=== PATIENT | female | born 1950 | race Caucasian/White ===

== ENCOUNTER 2019-06-09 13:49 | Inpatient (IN) | payer OTHER ==
[~2019-06-09] VITALS: Ht 152.4 cm; Wt 77.1 kg
[2019-06-09] VITALS (19 sets, daily range): BP systolic 89–114; BP diastolic 45–71
[~2019-06-09 13:49] MED LIST: ALPRAZOLAM 0.0.25 M1 PO; LOPRESSOR100 MG PO; SIMVASTATIN40 MG PO
[2019-06-09 14:22] LABS: ABSOLUTE NEUTROPHILS 8.1 thou/uL (1.4-8.2); BASOPHILS 0.3 % (0.0-2.0); EOSINOPHILS 0.4 % (0.0-3.0); HEMATOCRIT 25.6 % (37.0-47.0); HEMOGLOBIN 8.5 gm/dL (12.0-15.0); LYMPHOCYTES 12.3 % (24.0-44.0); MCH 29.5 pg (26.0-34.0); MCHC 33.3 g/dL (28.0-37.0); MCV 88.6 fL (80.0-100.0); MONOCYTES 8.8 % (1.0-8.0); PLATELET COUNT 287 thou/uL (150-400); POLYS 78.2 % (36.0-66.0); RBC 2.89 mil/uL (4.20-5.00); RDW 12.4 % (10.5-14.5); WBC 10.3 thou/uL (4.0-11.0)
[2019-06-09 14:30] LABS: ANION GAP 8 mmol/L (7-16); BUN 86 mg/dL (7-18); CALCIUM 9.7 mg/dL (8.5-10.1); CHLORIDE 97 mmol/L (98-107); CO2 27 mmol/L (21-32); CREATININE 1.2 mg/dL (0.6-1.0); GLUCOSE 140 mg/dL (74-106); POTASSIUM 5.3 mmol/L (3.5-5.1); SODIUM 132 mmol/L (136-145)
[2019-06-09 14:40] LABS: ALBUMIN 3.3 g/dL (3.4-5.0); APTT 20.8 Seconds (24.5-32.8); PROTIME 10.4 Seconds (9.3-11.4); SGOT 12 U/L (15-37); SGPT 18 U/L (30-65); TOTAL BILIRUBIN 0.1 mg/dL (<0.1-1.0); TOTAL PROTEIN 6.3 g/dL (6.4-8.2); TROPONIN-I <0.06 ng/mL (<0.06)
--- NOTE | 2019-06-09 17:48 | NUR ---
PT CAME FROM ER AT 1646.PT COMPLAINING OF DISTENTION AND ACID REFLUX. PT ON PROTONIX DRIP. NS STARTED AT 75ML/HR. PT NOT COMPLAINING OF ANY PAIN AT THIS MOMENT.
[2019-06-10] VITALS (17 sets, daily range): BP systolic 82–106; BP diastolic 43–59
[2019-06-10 05:57] LABS: HEMATOCRIT 21.5 % (37.0-47.0); HEMOGLOBIN 7.3 gm/dL (12.0-15.0); MCH 30.1 pg (26.0-34.0); MCHC 33.9 g/dL (28.0-37.0); RBC 2.42 mil/uL (4.20-5.00); RDW 12.3 % (10.5-14.5); WBC 7.5 thou/uL (4.0-11.0)
[2019-06-10 06:09] LABS: CALCIUM 8.5 mg/dL (8.5-10.1); POTASSIUM 4.7 mmol/L (3.5-5.1)
--- NOTE | 2019-06-10 08:41 | EKG ---
[address] [place] [address] ELECTROCARDIOGRAM REPORT Name: JANICE MÉNDEZ Room #: 241-P ADM IN M.R.#: [id number] Admission: 06/09/19 Attend Phys: Galo Lara MD Discharge: Date of : 48 Report #: [id number] THIS REPORT FOR: //name// [facility] ED Test Date: 2019-06-09 Test Time: 13:49:50 Pat Name: JANICE MÉNDEZ Department: Room: 241 Gender: F Sexual Assault Counselor: EMIGDIO : 1950 Requested By: Kae Miller Order Number: [id number] MD: Randolph Bone Measurements Intervals [place] Rate: 78 P: -9 MA: 106 QRS: 50 QRSD: 99 T: 49 QT: 372 QTc: 424 Interpretive Statements Sinus rhythm Short MA interval Compared to ECG 04/28/2013 09:44:13 No significant change was found Electronically Signed On 06-10-2019 8:41:09 CDT by Randolph Bone [email or web address] <ELECTRONICALLY SIGNED> By: Randolph Bone MD, [facility] 06/10/19 0841 1349 134 Randolph Bone MD, FACC /EPI
[2019-06-10] MEDS ORDERED: PROTONIX40 M1 PO (10:46)
[2019-06-10 13:49] LABS: URINE BILIRUBIN NEGATIVE (Negative); URINE BLOOD NEGATIVE (Negative); URINE CLARITY CLEAR; URINE COLOR YELLOW; URINE GLUCOSE-RANDOM* NEGATIVE (Negative); URINE KETONES NEGATIVE (Negative); URINE LEUKOCYTES NEGATIVE (Negative); URINE NITRITE NEGATIVE (Negative); URINE PROTEIN (DIPSTICK) NEGATIVE (Negative); URINE SPECIFIC GRAVITY <= 1.005 (1.005-1.035); URINE UROBILINOGEN 0.2 E.U./dl (0.2-1.0)
--- NOTE | 2019-06-10 17:38 | NUR ---
PT TRANSFERED SAFELY TO THE FLOOR ROOM 444 PT REPORT GIVEN TO DALTON GIBSON. PT BELONGINGS TAKEN WITH THE PT.
[2019-06-10] MEDS ORDERED: LISINOPRIL40 MG PO (18:08)
[2019-06-10] MEDS ORDERED: METOPROLOL SUCC50 MG PO (18:09)
[2019-06-10] MEDS ORDERED: ALENDRONATE SOD70 MG PO (18:10)
--- NOTE | 2019-06-10 20:24 | NUR ---
Transferred from ICU to the floor at 1730. Transferred to bed safely. A+Ox4. Falls risk- falls bundle in place. On room air. With SL at R AC and L AC- intact. Vital signs stable. With relatives at bedside. On regular diet- tolerated well, no nausea, no vomiting and no abdominal pain noted. To watch out for bloody stool- none since admission as reported by ICU staff. Pt keen to go home tomorrow. No complaints of pain. Informed pt to inform staff once she has a bowel movement or any bleeding episodes. To continue monitoring. No episodes of lightheadedness and dizziness noted. Upon checking pt's notes, NO MEDICATION REC done at ICU, medication rec done and sent to doctor for review- a/w orders re: meds to continue or to hold- table games shift manager nurse informed.
[2019-06-11 05:51] LABS: WBC 5.4 thou/uL (4.0-11.0)
[2019-06-11 05:54] LABS: MCH 30.2 pg (26.0-34.0); MCHC 33.8 g/dL (28.0-37.0); MCV 89.3 fL (80.0-100.0); RBC 2.2 mil/uL (4.20-5.00); RDW 12.4 % (10.5-14.5)
[2019-06-11 05:56] LABS: HEMATOCRIT 19.6 % (37.0-47.0); HEMOGLOBIN 6.6 gm/dL (12.0-15.0)
--- NOTE | 2019-06-11 08:11 | NUR ---
ASSUMED CARE OF PT @1900. PT A&OX4. PT AMBULATES WITH STAEDY GAIT BUT AGREES TO CALL ON STAFF FOR STANDBY ASSIST DUE TO HX OF LIGHTHEADEDNESS AND DIZZINESS. NO BM OVERNIGHT. FALL PREC IN PLACE. CALL LIGHT WITHIN REACH. NO S/S OF DISTRESS. WILL CONT TO MONITOR
[2019-06-11 09:00] VITALS: BP 111/60
[2019-06-11] MEDS ORDERED: PANTOPRAZOLE SO40 M1 PO (09:30)
[2019-06-11 09:52] VITALS: BP 114/54; BP 138/68
--- NOTE | 2019-06-11 10:15 | NUR ---
Received awake on bed. Due medications given as prescribed. A+Ox4. On room air. With SL at R AC and L AC- intact. Falls risk- falls bundle in place. Vital sings stable. configuration specialist nurse reported that there was a drop in Hb from this AM's blood draw- pt due for blood transfusion, ordered and requested from blood bank, a/w for their call back re: availability of blood. With at bedside. No episode of active bleeding noted. Blood bank called back, with available 1 unit of leukoreduced red cells. Pre-blood transfusion VS done, consent signed. Blood transfusion protocol observed, senior nurse double checked blood. Pt seen by Dr Melton- to transfuse 1 unit for 3hrs, repeat H&H 15 mins post transfusion, if Hb is WNL, pt can be discharged. Blood transfusion initiated, no reactions noted within 15mins. Blood bank called re: availability of another unit- verified with Dr Melton re: number of units to infuse- to give 1 unit to pt. Blood bank informed, will keep blood available just incase pt needs another unit post H&H.
[2019-06-11 13:16] VITALS: BP 138/68
[2019-06-11 13:52] LABS: HEMATOCRIT 28.2 % (37.0-47.0); MCH 30.1 pg (26.0-34.0); MCHC 33.6 g/dL (28.0-37.0); MCV 89.6 fL (80.0-100.0); RBC 3.15 mil/uL (4.20-5.00); RDW 12.9 % (10.5-14.5)
[2019-06-11 13:54] LABS: HEMOGLOBIN 9.5 gm/dL (12.0-15.0)
--- NOTE | 2019-06-11 15:07 | PATH ---
[facility] [address] [place] [address] PATHOLOGY RPT PROCEDURE Name: ARIADNE MÉNDEZ Room #: 444-P ADM IN M.R.#: [id number] Admission: 06/09/19 Date of : 48 Discharge: Report #: [id number] Path Case #: [id number] [facility] Accession Number: [id number] . 01 Material submitted: . stomach - BIOPSY GASTRIC ULCER R/O H. PYLORI . 01 Clinical history: . Pre-OP DX: Anemia, melena Post-OP DX: Gastric ulcers . 02 Diagnosis: Gastric mucosa, gastric ulcer R/O H. pylori, endoscopic biopsy: - Mild reactive gastropathy. - Negative for intestinal metaplasia or atrophy. - Negative for Helicobacter pylori (properly controlled immunohistochemical stain performed). (IUV:blanca; 06/11/2019) QMS 06/11/2019 1314 Local . 02 Electronically signed: . Rosemary Nevarez MD, Pathologist NPI- [id number] . 01 Gross description: . Received in formalin labeled "Ariadne Méndez, BX gastric ulcer, rule out H. pylori," are 3 segments of pate soft tissue measuring 1.2 x 0.6 x 0.2 cm in aggregate dimensions and ranging from 0.3 to 0.7 cm in maximum dimension. The specimen is submitted entirely in cassette A1. (TSD; 06/10/2019) TOB/TOB 06/10/2019 1924 Local . 02 Pathologist provided ICD-10: K31.9 . 02 CPT . 399074, U39983 Specimen Comment: A courtesy copy of this report has been sent to Specimen Comment: [phone], , . Specimen Comment: Report sent to ,DR FRANKS / DR NOLASCO Performed at: [address], [place] [id number] MD Baljeet Do MD Phone: [phone] Performed at: [address] [id number] [address] [address] PATHOLOGY RPT PROCEDURE Name: ARIADNE MÉNDEZ Room #: 444-P ADM IN M.R.#: [id number] Admission: 06/09/19 Date of : 48 Discharge: Report #: [id number] Path Case #: [id number] MD Rosemary Nevarez MD Phone: [phone]
[2019-06-11 15:54] VITALS: BP 138/68
[2019-08-02] MEDS ORDERED: HYDROCHLOROTH12.5 M2 PO (11:44)
[2019-08-02] MEDS ORDERED: ASPIR-LOW81 MG PO (11:46)
== END 2019-06-11 16:54 | disposition home or self-care (01) | DRG 377 ==
LOC: ER 13:49 → EROBS 14:48 → ICU 14:48 → 4S 06-10 17:21 → ENTRNSPT 06-11 16:23 → 4S 06-11 16:54
PROVIDERS: Hospitalist; Internal Medicine; Physician Assistant; ADMIT Hospitalist
PROC: 0DB68ZX Excision of Stomach, Via Natural or Artificial Opening Endoscopic, Diagnostic (ICD-10-PCS; principal; 2019-06-10)
PROC: 30233N1 Transfusion of Nonautologous Red Blood Cells into Peripheral Vein, Percutaneous Approach (ICD-10-PCS; 2019-06-11)
DX: K25.4 Chronic or unspecified gastric ulcer with hemorrhage (principal); E43 Unspecified severe protein-calorie malnutrition; D62 Acute posthemorrhagic anemia; I10 Essential (primary) hypertension; E78.5 Hyperlipidemia, unspecified; Z79.899 Other long term (current) drug therapy; Z79.1 Long term (current) use of non-steroidal anti-inflammatories (NSAID); Z87.891 Personal history of nicotine dependence; Z90.49 Acquired absence of other specified parts of digestive tract; Z90.710 Acquired absence of both cervix and uterus
CPT/HCPCS: 10100; 10195; 10203; 62110; 62900

== ENCOUNTER → 2019-08-05 | Outpatient (CLI) | payer OTHER ==
[~2019-08-05] VITALS: Ht 172.7 cm; Wt 77.1 kg
[~2019-08-05] MED LIST changes: +ALENDRONATE SOD70 MG PO; +ASPIR-LOW81 MG PO; +HYDROCHLOROTH12.5 M2 PO; +LISINOPRIL40 MG PO; +METOPROLOL SUCC50 MG PO; +PANTOPRAZOLE SO40 M1 PO; +PROTONIX40 M1 PO
== END | disposition home or self-care (01) ==
LOC: GI 07-19 11:48
DX: K25.9 Gastric ulcer, unspecified as acute or chronic, without hemorrhage or perforation (principal); I10 Essential (primary) hypertension; E78.00 Pure hypercholesterolemia, unspecified; K21.9 Gastro-esophageal reflux disease without esophagitis; F32.9 Major depressive disorder, single episode, unspecified; F41.9 Anxiety disorder, unspecified; Z86.2 Personal history of diseases of the blood and blood-forming organs and certain disorders involving the immune mechanism; Z90.49 Acquired absence of other specified parts of digestive tract; Z90.710 Acquired absence of both cervix and uterus; Z87.891 Personal history of nicotine dependence
CPT/HCPCS: 62110; 62900

== ENCOUNTER 2019-09-19 15:07 | Inpatient (IN) | payer OTHER ==
[~2019-09-19] VITALS: Ht 172.7 cm; Wt 77.1 kg
[2019-09-19 15:10] VITALS: BP 125/81
[2019-09-19 16:01] LABS: ABSOLUTE NEUTROPHILS 7.7 thou/uL (1.4-8.2); BASOPHILS 0.9 % (0.0-2.0); EOSINOPHILS 0.6 % (0.0-3.0); HEMATOCRIT 25.4 % (37.0-47.0); HEMOGLOBIN 8.4 gm/dL (12.0-15.0); LYMPHOCYTES 13.3 % (24.0-44.0); MCH 28.5 pg (26.0-34.0); MCHC 33.1 g/dL (28.0-37.0); MCV 86.1 fL (80.0-100.0); MONOCYTES 6.2 % (1.0-8.0); PLATELET COUNT 253 thou/uL (150-400); RBC 2.95 mil/uL (4.20-5.00); RDW 14.1 % (10.5-14.5); WBC 9.7 thou/uL (4.0-11.0)
[2019-09-19 16:06] LABS: CALCIUM 10.1 mg/dL (8.5-10.1); POTASSIUM 4.4 mmol/L (3.5-5.1)
[2019-09-19 16:12] LABS: ALBUMIN 3.5 g/dL (3.4-5.0); TOTAL BILIRUBIN 0.2 mg/dL (<0.1-1.0); TOTAL PROTEIN 6.6 g/dL (6.4-8.2)
[2019-09-19 17:03] LABS: PROTIME 10.5 Seconds (9.3-11.4)
[2019-09-19 17:05] LABS: APTT 21.2 Seconds (24.5-32.8)
[2019-09-19 17:37] VITALS: BP 106/61
[2019-09-19 17:54] LABS: HEMATOCRIT 22.4 % (37.0-47.0); HEMOGLOBIN 7.5 gm/dL (12.0-15.0)
[2019-09-19] MEDS ORDERED: VITAMIN B-121000 MC2 PO (18:13)
[2019-09-19 18:20] VITALS: BP 107/69
[2019-09-19 20:15] VITALS: BP 101/49
[2019-09-20] VITALS (8 sets, daily range): BP systolic 97–131; BP diastolic 41–63
[2019-09-20 05:25] LABS: HEMOGLOBIN 6.3 gm/dL (12.0-15.0)
[2019-09-20 05:26] LABS: HEMATOCRIT 18.8 % (37.0-47.0)
[2019-09-20 11:24] LABS: HEMATOCRIT 25.6 % (37.0-47.0)
[2019-09-20 11:25] LABS: HEMOGLOBIN 8.5 gm/dL (12.0-15.0)
[2019-09-21 04:00] VITALS: BP 119/64
[2019-09-21 04:09] LABS: HEMATOCRIT 21.2 % (37.0-47.0); HEMOGLOBIN 7.2 gm/dL (12.0-15.0); MCH 29.5 pg (26.0-34.0); MCHC 33.8 g/dL (28.0-37.0); MCV 87.4 fL (80.0-100.0); RBC 2.43 mil/uL (4.20-5.00); RDW 14.2 % (10.5-14.5); WBC 4.7 thou/uL (4.0-11.0)
[2019-09-21 07:20] VITALS: BP 118/60
--- NOTE | 2019-09-21 11:04 | P ---
[facility] [place] [address] [place] [address] PROCEDURE REPORT Name: JANICE MÉNDEZ Room #: 201-P [facility] IN M.R.#: [id number] Admission: 09/19/19 Attend Phys: Mariia Melton Discharge: Date of : 48 Report #: [id number] THIS REPORT FOR: //name// CC: Mariia Gupta UPPER ENDOSCOPY REPORT BRIEF HISTORY: The patient is a 69-year-old woman with recurrent GI bleeding. She was found to have ulcer disease in last 05/2019 with 4 antral ulcers. Followup endoscopy in mid 07/2019 revealed healing of the ulcers. She presented with melanotic stools, drop in hemoglobin. PREOPERATIVE DIAGNOSIS: History of upper gastrointestinal bleed with previous history of ulcer disease. POSTOPERATIVE DIAGNOSES: 1. Benign appearing antral ulcer. 2. Small hiatus hernia. 3. Diffuse gastritis. MEDICATIONS: Deep sedation with propofol per anesthesia. SPECIMENS: None. ESTIMATED BLOOD LOSS: None. PROCEDURE: EGD with hemostasis. FINDINGS: Prior to propofol sedation, procedure of upper endoscopy discussed with the patient as well as potential risks and its complications. She indicates she understands and desires that we proceed. DESCRIPTION OF PROCEDURE: With the patient in left lateral decubitus position, the Olympus video endoscope was inserted in the cervical esophagus under direct vision without difficulty. Examination of this organ through its entire length revealed normal esophageal mucosa down the squamocolumnar junction. Squamocolumnar junction was inspected and noted to be unremarkable. Small hiatus hernia was seen. Scope was advanced in the stomach, which was examined on end view as well as retroflexed views. There was noted to be patchy erythema noted. Upon retroflexion, no mass or lesions were seen. There was no blood in the stomach. Examination of the antrum of the stomach revealed a 6-8 mm shallow ulcer in the antrum of the stomach. It had a smooth and benign appearance. In the center of white exudate, there was a dark red spot and it was flat. Pylorus, duodenal bulb, and postbulbar duodenal sweep were inspected and noted to be unremarkable. Due to the fact she has had recurrent GI bleeding, it was felt best to treat the ulcer. The standard scope was switched for the [facility] [address] [place] [address] PROCEDURE REPORT Name: JANICE MÉNDEZ Room #: 201-P [facility] IN M.R.#: [id number] Admission: 09/19/19 Attend Phys: Mariia Melton Discharge: Date of : 48 Report #: [id number] therapeutic scope and with use of a 10-[place] BICAP probe, the central black spot was completely obliterated. There was no bleeding. The patient tolerated the procedure well. DISPOSITION: The patient with recurrent GI bleeding. It is noted that previous biopsies were negative for H. pylori. She does take a baby aspirin daily for general health principles. In the past 6 weeks, it was noticed that she has been using nonsteroidal. We will obtain a gastrin level. Continue to monitor for bleeding. She will definitely need a repeat EGD to ensure healing of the ulcer about 8 weeks. She is to avoid use of all nonsteroidals. <ELECTRONICALLY SIGNED> By: Carlitos Fox MD 09/21/19 1104 1259 1621 Carlitos Fox MD /nt
[2019-09-21 11:34] VITALS: BP 138/63
[2019-09-21 14:22] VITALS: BP 124/66
[2019-09-21 19:15] VITALS: BP 120/53
[2019-09-22 03:25] VITALS: BP 122/56
[2019-09-22 04:34] LABS: HEMATOCRIT 21.1 % (37.0-47.0); MCH 29.1 pg (26.0-34.0); MCHC 33.3 g/dL (28.0-37.0); MCV 87.2 fL (80.0-100.0); RBC 2.42 mil/uL (4.20-5.00); RDW 14.2 % (10.5-14.5); WBC 4.5 thou/uL (4.0-11.0)
[2019-09-22 04:49] LABS: CALCIUM 8.8 mg/dL (8.5-10.1); CREATININE 0.8 mg/dL (0.6-1.0); POTASSIUM 3.9 mmol/L (3.5-5.1)
[2019-09-22 08:22] VITALS: BP 125/71
[2019-09-22 11:28] LABS: HEMOGLOBIN 7.5 gm/dL (12.0-15.0)
[2019-09-22 11:29] LABS: HEMATOCRIT 22.6 % (37.0-47.0)
[2019-09-22] MEDS ORDERED: PROTONIX40 M1 PO (12:56)
[2019-09-22] MEDS ORDERED: CARAFATE 1 GM TA1 G1 PO (12:56)
[2019-09-22 13:05] VITALS: BP 125/71
[2019-09-22 13:28] VITALS: BP 125/71
== END 2019-09-22 13:31 | disposition home or self-care (01) | DRG 378 ==
LOC: ER 15:07 → EROBS 17:11 → 2N 17:11 → 4S 09-21 13:51
PROVIDERS: Emergency Medicine; Hospitalist; Internal Medicine Gastroenterology; Specialist; ADMIT Hospitalist
PROC: 0W3P8ZZ Control Bleeding in Gastrointestinal Tract, Via Natural or Artificial Opening Endoscopic (ICD-10-PCS; 2019-09-19)
PROC: 30233N1 Transfusion of Nonautologous Red Blood Cells into Peripheral Vein, Percutaneous Approach (ICD-10-PCS; principal; 2019-09-20)
DX: K25.4 Chronic or unspecified gastric ulcer with hemorrhage (principal); D62 Acute posthemorrhagic anemia; K21.9 Gastro-esophageal reflux disease without esophagitis; I10 Essential (primary) hypertension; E78.5 Hyperlipidemia, unspecified; F41.9 Anxiety disorder, unspecified; F17.210 Nicotine dependence, cigarettes, uncomplicated; R53.1 Weakness; K44.9 Diaphragmatic hernia without obstruction or gangrene; K29.71 Gastritis, unspecified, with bleeding; M81.0 Age-related osteoporosis without current pathological fracture; R53.81 Other malaise; Z87.11 Personal history of peptic ulcer disease; Z90.89 Acquired absence of other organs; Z90.710 Acquired absence of both cervix and uterus; Z91.81 History of falling; Z79.82 Long term (current) use of aspirin; Z79.899 Other long term (current) drug therapy
CPT/HCPCS: 10081; 10102; 62110; 62900; 70005

== ENCOUNTER → 2019-11-04 | Outpatient (CLI) | payer OTHER ==
[~2019-11-04] VITALS: Ht 172.7 cm; Wt 77.1 kg
[~2019-11-04] MED LIST changes: +CARAFATE 1 GM TA1 G1 PO; +OMEPRAZOLE40 MG PO; +VITAMIN B-121000 MC2 PO
--- NOTE | ~2019-11-04 | HPC ---
[facility] [place] [address] [place] [address] PAIN MANAGEMENT CONSULTATION Name: JANICE MÉNDEZ Room #: REG [facility].#: [id number] Admission: 11/04/19 Attend Phys: John Maher MD Discharge: Date of : 48 Report #: [id number] THIS REPORT FOR: cc: Elijah Gupta MD, Steven A. MD Morgan, Richard L. MD ~ THIS REPORT FOR: //name// CC: John Gupta DATE OF SERVICE: 11/04/2019 CHIEF COMPLAINT: Low back pain that radiates through the lateral thigh to the ankle. HISTORY OF PRESENT ILLNESS: The patient is a yessi 69-year-old who is here today at the request of Dr. Gupta for lumbar radicular symptoms. An MRI was performed on 08/29/2019 which confirmed a grade 2 spondylolisthesis at L5-S1. This correlates with some of her symptoms. I do not have the films, but have been able to review the report. She is having her first real episode of back pain. This has been going on for about the last couple of years and is progressively worsening. She averages her daily pain at 8/10 when standing. Standing is her worst position. When she is walking, she is a bit better and she is able to sit comfortably and lay down. She describes it as shooting, burning sensation. MEDICATIONS: Metoprolol 50 mg daily, alprazolam 0.25 mg as needed in perhaps once a week, vitamin B12 1000 mg daily, simvastatin 40 mg daily, lisinopril 40 mg daily, omeprazole 40 mg b.i.d. ALLERGIES: None. She is quite sensitive to nonsteroidal anti-inflammatory drugs and has a history of gastrointestinal bleeding, which is felt to be secondary to their use. She avoids them cautiously. PAST MEDICAL HISTORY: Positive for hypertension and chronic gastritis. The history of ulcers is also noted. PAST TRAUMA HISTORY: Positive for a fractured collarbone approximately 2 years ago when she fell that is around the time that her back pain began. She did not have severe back pain at that time and this spondylolisthesis is felt to be chronic, not acute, this is subacute. PAST SURGICAL HISTORY: Appendectomy in 1968, hysterectomy in [address]. 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 She does not work regularly. She is an ex-smoker, quitting 2 years ago when she fractured her clavicle. She drinks a couple glasses of wine socially almost every evening with her . Impact pain score is 15, this is a very low score out of 70. She manages her pain well. REVIEW OF SYSTEMS: Significant for hearing loss, history of rectal bleeding as described previously and peptic ulcers. She has nocturia and some insomnia. PHYSICAL EXAMINATION: GENERAL: This is a yessi 69-year-old pleasant, alert and oriented, without signs of anxiety, depression or overmedication. She moves independently and easily from sitting to standing position, her gait is nonantalgic. VITAL SIGNS: Blood pressure is 112/62, heart rate 63, respirations 16, O2 sat 98. HEENT: Within normal limits. NECK: Supple. CHEST: Clear. CARDIAC: Rhythm was regular. I could not appreciate a murmur. MUSCULOSKELETAL: Examination of the spine reveals mild tenderness across the lumbosacral segment. There is a palpable step-off consistent with her spondylolisthesis, grade 2. Straight leg raising is only mildly positive in the sitting and supine position, reproducing L5 symptoms. Sensation is normal. Strength is normal. Deep tendon reflexes are 2+ knees, 1+ ankles and symmetrical. IMPRESSION: 1. Grade 2 spondylolisthesis, L5-S1 causing lumbar radiculopathy, bilateral. 2. Severe degenerative disk disease. 3. Some facet arthropathy as well. PROCEDURE RECOMMENDATIONS PROCEDURE: Epidural steroid injection L4-L5 above the level of the spondylolisthesis under fluoroscopic guidance. DESCRIPTION OF PROCEDURE: She was taken to fluoroscopic suite, placed prone, skin prepped with ChloraPrep. Skin anesthetized over the L4-L5 interspace. A 20-gauge Tuohy epidural needle advanced into the inferior epidural space using loss of resistance technique. There was no blood or CSF aspirated. A 1 mL of Omnipaque was injected with an excellent epidurogram. This was then followed by 3 mL of 0.5% lidocaine mixed with 80 mg triamcinolone. She tolerated the [facility] [address] [place] [address] PAIN MANAGEMENT CONSULTATION Name: JANICE MÉNDEZ Room #: REG [facility] Arriaga#: [id number] Admission: 11/04/19 Attend Phys: John Maher MD Discharge: Date of : 48 Report #: [id number] procedure well and was observed for 45 minutes and discharged. Followup visit planned in 1 month or 2. A series of injections is not necessarily recommended, but further injections for symptom management in the future may be of benefit for her. By: 1023 2046 John Maher MD /nt
[2019-11-04 09:10] VITALS: BP 112/62
--- NOTE | 2019-11-04 09:48 | NUR ---
Pain Clinic Assessment: 1. History of Osteoarthritis: DDD BACK History of Rheumatoid Arthritis: * N/A 2. Height: 5 ft. 8 in. 172.7 cm. Weight: 170.0 lb. oz. 77.112 kg. Patient's BMI: 25.9 3. Vital Signs: BP: 112/62 Pulse: 63 Resp: 16 Temp: 02 Sat: 98 ECG Mon: 4. Pain Intensity: 2 TODAY, 5. Fall Risk: Dizziness: N Needs help standing or walking: N Fallen in the last 3 months: N Fall risk comments: 6. Patient on Blood Thinner: None 7. History of Hypertension: Y 8. Opioid Therapy greater than 6 weeks: N Opiate Contract Signed: 9. Risk Assessment Tool Provided: 1-LOW RISK 10. Functional Assessment Tool: 11. Recreational Drug Use: Never Drug Type: Tobacco Use: Former Smoker Tobacco Type: Cigarettes Amount or Packs/day: 4-5 CIGS How Many Years: 30 Alcohol Use: Unknown Frequency: Daily Quant: 2 GLASSES WINE DAY
== END | disposition home or self-care (01) ==
LOC: PAIN 06:53
DX: M51.16 Intervertebral disc disorders with radiculopathy, lumbar region (principal); M47.26 Other spondylosis with radiculopathy, lumbar region; M43.17 Spondylolisthesis, lumbosacral region; I10 Essential (primary) hypertension; Z98.890 Other specified postprocedural states; Z79.899 Other long term (current) drug therapy; Z87.19 Personal history of other diseases of the digestive system; Z88.8 Allergy status to other drugs, medicaments and biological substances

== ENCOUNTER → 2019-11-18 | Outpatient (CLI) | payer OTHER ==
[~2019-11-18] VITALS: Ht 172.7 cm; Wt 76.7 kg
== END | disposition home or self-care (01) ==
LOC: GI 09:23
DX: K25.9 Gastric ulcer, unspecified as acute or chronic, without hemorrhage or perforation (principal); K21.9 Gastro-esophageal reflux disease without esophagitis; I10 Essential (primary) hypertension; E78.00 Pure hypercholesterolemia, unspecified; F41.9 Anxiety disorder, unspecified; Z86.2 Personal history of diseases of the blood and blood-forming organs and certain disorders involving the immune mechanism; Z90.710 Acquired absence of both cervix and uterus; Z90.49 Acquired absence of other specified parts of digestive tract; Z87.891 Personal history of nicotine dependence; Z98.890 Other specified postprocedural states; Z79.899 Other long term (current) drug therapy
CPT/HCPCS: 62110; 62900

== ENCOUNTER → 2020-02-24 | Outpatient (CLI) | payer OTHER ==
[~2020-02-24] VITALS: Ht 172.7 cm; Wt 73.1 kg
[2020-02-24 09:12] VITALS: BP 122/74
--- NOTE | 2020-02-24 09:19 | NUR ---
Pain Clinic Assessment: 1. History of Osteoarthritis: DDD BACK History of Rheumatoid Arthritis: * N/A 2. Height: 5 ft. 8 in. 172.7 cm. Weight: 161.2 lb. oz. 73.120 kg. Patient's BMI: 24.5 3. Vital Signs: BP: 122/74 Pulse: 60 Resp: 16 Temp: 02 Sat: 100 ECG Mon: 4. Pain Intensity: 2 TODAY, 5. Fall Risk: Dizziness: N Needs help standing or walking: N Fallen in the last 3 months: N Fall risk comments: 6. Patient on Blood Thinner: None 7. History of Hypertension: Y 8. Opioid Therapy greater than 6 weeks: N Opiate Contract Signed: 9. Risk Assessment Tool Provided: 1-LOW RISK 10. Functional Assessment Tool: 11. Recreational Drug Use: Never Drug Type: Tobacco Use: Former Smoker Tobacco Type: Cigarettes Amount or Packs/day: How Many Years: 30 Alcohol Use: Yes Frequency: Daily Quant: 1 GLASS WINE
--- NOTE | 2020-03-05 12:16 | HPC ---
[facility] [address] [place] [address] PAIN MANAGEMENT CONSULTATION Name: JANICE MÉNDEZ [id number] Admission: 02/24/20 Attend Phys: John Maher MD Discharge: Date of : 48 Report #: [id number] THIS REPORT FOR: cc: Elijah Gupta MD,John Shah MD, MD ~ CC: John Gupta DATE OF SERVICE: 02/24/2020 CHIEF COMPLAINT: Low back pain radiating into both legs, left worse than right. Grade 2 spondylolisthesis, L5-S1. The patient also has 2-year right-sided posterior chest wall pain below the scapula. I saw the patient October, and she received an epidural injection. She has had improvement, particularly on the right, but continues to experience pain in her left leg that radiates down the lateral aspect of her leg in the L5-S1 distribution. She has a grade 2 spondylolisthesis at L5-S1. Epidural injection provided excellent coverage throughout the L4, L5 and S1 distribution, and she is here today to repeat that injection hopefully to obtain better relief or more lasting improvement. We discussed our philosophy of using epidural injections as a tool to manage intense nerve pain. We also discussed the importance of remaining fit, exercising on a daily basis, avoiding tobacco and general good health. These are all factors in avoiding surgery long-term. We did discuss surgical treatment, but very briefly. Lumbar fusion if necessary and that is not an operation she would like to contemplate. Two years ago, she fell. She fractured her scapula. She has had pain in the posterior mid back just below the scapula radiating down to about the costal margin in the costovertebral angle since. The pain in that area is deep and aching and constant. She has had no x-rays or treatments. PQRS review is positive for degenerative disk disease and spondylosis. She denies pain in other joints. She is fit 70-year-old. Her BMI is 24.5, blood pressure 124/74, heart rate 60, respirations 16, O2 sat 100, pain intensity is only 2 today, but can be much worse after activities. She is not a fall risk. She is on no blood thinners. Dr. Gupta treats her for hypertension, and I did review all of her medications in the electronic medical record that are noted there. She takes no opioids from our clinic, but we have all our patients completing opioid risk tool. Her score is 1 suggesting very little risk of addiction for the use of intermittent opioids if necessary for chronic pain. Her functional assessment score is also excellent 15/70. She jesus well with her chronic pain. She is a former smoker, has not smoked in recent years, but did have a 60-gemm-rilj history. She still enjoys alcohol on occasion. [address] [address] PAIN MANAGEMENT CONSULTATION Name: JANICE MÉNDEZ Room #: REG [facility] Arriaga#: [id number] Admission: 02/24/20 Attend Phys: John Maher MD Discharge: Date of : 48 Report #: [id number] PHYSICAL EXAMINATION: VITAL SIGNS: As noted before. GENERAL: She is pleasant, alert and oriented, wearing a mask because of COVID restrictions. MUSCULOSKELETAL: Reveals easy moving from chair to sitting, standing and walking without difficulty. There is no antalgic features to her gait. She has tenderness below the scapula along the chest wall. There is some tenderness along the costovertebral junction as well on the right. Examination of the spine reveals mild tenderness: Moderate. Straight leg raising is noted bilaterally in lower extremities, reproducing some discomfort in the L5-S1 distribution. IMPRESSION: 1. Grade 2 spondylolisthesis with radiculopathy. 2. Back pain, status post fall about 2 years ago. RECOMMENDATION: While she is here today we are going to get some thoracic x-rays, AP, lateral and oblique views. We will see if we can see something we might suggest either a degenerative condition, sometimes a facet disk or rib articulation can show some calcifications and this would suggest perhaps arthropathy. IMPRESSION: 1. Myofascial components are also common in this situation where muscle tension and spasm exacerbates pain. 2. Lumbar radiculopathy secondary to spondylolisthesis, which will perform an epidural injection for today left L4-L5 paramedian. PROCEDURE: She was taken to fluoroscopic suite, placed prone, skin prepped with ChloraPrep. Skin anesthetized over L4-L5. A 20-gauge Tuohy epidural needle advanced first attempt in the epidural space to the left midline. There was no blood or CSF aspirated. A 1 mL of Omnipaque demonstrated an excellent epidurogram, and is followed by 3 mL of 0.5% lidocaine mixed with 80 mg triamcinolone. She tolerated the procedure well. There were no complications. She was observed in recovery room for 45 minutes and discharged. Followup visit planned on an as needed basis. No medications were ordered. I will review her x-rays and have been sent also to Dr. Gupta's office. <ELECTRONICALLY SIGNED> By: John Maher MD 03/05/20 1216 [id number] 1027 MD emerson Joseph
== END | disposition home or self-care (01) ==
LOC: PAIN 06:56
PROVIDERS: ATTEND Anesthesiology Pain Medicine
DX: M54.16 Radiculopathy, lumbar region (principal); M43.16 Spondylolisthesis, lumbar region; M79.18 Myalgia, other site; I10 Essential (primary) hypertension; G89.29 Other chronic pain; Z98.890 Other specified postprocedural states; Z79.899 Other long term (current) drug therapy; Z87.891 Personal history of nicotine dependence

== ENCOUNTER → 2020-04-06 | Outpatient (CLI) | payer OTHER ==
[~2020-04-06] VITALS: Ht 172.7 cm; Wt 71.9 kg
[2020-04-06 14:36] VITALS: BP 122/67
--- NOTE | 2020-04-06 14:44 | NUR ---
Pain Clinic Assessment: 1. History of Osteoarthritis: DDD BACK History of Rheumatoid Arthritis: * N/A 2. Height: 5 ft. 8 in. 172.7 cm. Weight: 158.6 lb. oz. 71.940 kg. Patient's BMI: 24.1 3. Vital Signs: BP: 122/67 Pulse: 58 Resp: 18 Temp: 02 Sat: 100 ECG Mon: 4. Pain Intensity: 3 5. Fall Risk: Dizziness: N Needs help standing or walking: N Fallen in the last 3 months: N Fall risk comments: 6. Patient on Blood Thinner: None 7. History of Hypertension: Y 8. Opioid Therapy greater than 6 weeks: N Opiate Contract Signed: 9. Risk Assessment Tool Provided: 1-LOW RISK 10. Functional Assessment Tool: 11. Recreational Drug Use: Never Drug Type: Tobacco Use: Former Smoker Tobacco Type: Amount or Packs/day: How Many Years: Alcohol Use: Yes Frequency: Quant:
--- NOTE | 2020-04-16 09:57 | HPC ---
[facility] [place] [address] PAIN MANAGEMENT CONSULTATION Name: JANICE MÉNDEZ Room #: REG [facility]#: [id number] Admission: 04/06/20 Attend Phys: John Maher MD Discharge: Date of : 48 Report #: [id number] THIS REPORT FOR: cc: Elijah Gupta MD,John Shah MD, MD ~ CC: John Gupta DATE OF SERVICE: 04/06/2020 Followup visit for persistent thoracic spine pain. The patient returns to pain clinic today in followup. She continues to complain of pain in her mid back just below medial to the scapula. She reports that she fell fracturing her scapula 2 years ago. We discussed the fact that the bone is healed, which may have myofascial symptoms, which can be persistent in and around the area. At her last visit, we performed treatment for her low back. She has a grade 2 spondylolisthesis and has responded very nicely to epidural therapy. Her pain continues to remain well controlled with her most recent injection. PQRS REVIEW: Positive for spondylosis, but she denies other joint pains. BMI 24.1, slightly lower than last visit. Blood pressure 122/67, heart rate 58, respirations 18, O2 sat 100% on room air. Pain intensity 3/10. She is not a fall risk. The patient is not on blood thinners. She has been treated for hypertension successfully. I reviewed all medications. She is not on an opioid, but completed an opioid risk tool as we ask all patients to do her score was 1 and is considered at low risk if ever needed medication. Functional assessment score is 42/70 suggesting a fair degree of interference with day-to-day activities related to pain. She does not smoke. She drinks alcohol socially. PHYSICAL EXAMINATION: VITAL SIGNS: As noted. MUSCULOSKELETAL: There is a general tenderness along the scapula, both medially and inferiorly. There is slight asymmetry of the paravertebral muscles and the area surrounding the attachment of the rhomboid major and minor and trapezius along the scapula. No specific trigger points were identified in this area. IMPRESSION: Myofascial pain, which may have occurred secondary to a fracture of the scapula 2 years ago during some injury and fall. RECOMMENDATION: Trigger point injections. PROCEDURE: Skin was prepped with ChloraPrep. A 25-gauge needle was used to [address] [address] PAIN MANAGEMENT CONSULTATION Name: JANICE MÉNDEZ Room #: REG CLI [facility]#: [id number] Admission: 04/06/20 Attend Phys: John Maher MD Discharge: Date of : 48 Report #: [id number] infiltrate the trapezius, rhomboid major and minor with a total of 7 mL of 0.5% bupivacaine mixed with 40 mg of triamcinolone. She tolerated the injections well and no complications. She was observed in recovery room and discharged. Followup visit is scheduled on an as needed basis. No medications were ordered during today's visit. <ELECTRONICALLY SIGNED> By: John Maher MD 04/16/20 [id number] John Maher MD /nt
== END | disposition home or self-care (01) ==
LOC: PAIN 07:13
PROVIDERS: ATTEND Anesthesiology Pain Medicine
DX: M79.18 Myalgia, other site (principal); M54.6 Pain in thoracic spine; D64.9 Anemia, unspecified; Z98.890 Other specified postprocedural states; Z79.899 Other long term (current) drug therapy; Z87.891 Personal history of nicotine dependence

== ENCOUNTER → 2020-07-20 | Outpatient (CLI) | payer OTHER ==
[~2020-07-20] VITALS: Ht 172.7 cm; Wt 71.0 kg
[2020-07-20 10:56] VITALS: BP 149/84
--- NOTE | 2020-07-20 11:11 | NUR ---
Pain Clinic Assessment: 1. History of Osteoarthritis: DDD BACK History of Rheumatoid Arthritis: * N/A 2. Height: 5 ft. 8 in. 172.7 cm. Weight: 156.6 lb. oz. 71.033 kg. Patient's BMI: 23.8 3. Vital Signs: BP: 149/84 Pulse: 50 Resp: 18 Temp: 02 Sat: 100 ECG Mon: 4. Pain Intensity: 2-3 5. Fall Risk: Dizziness: N Needs help standing or walking: N Fallen in the last 3 months: N Fall risk comments: 6. Patient on Blood Thinner: None 7. History of Hypertension: Y 8. Opioid Therapy greater than 6 weeks: N Opiate Contract Signed: 9. Risk Assessment Tool Provided: 1-LOW RISK 10. Functional Assessment Tool: 11. Recreational Drug Use: Never Drug Type: Tobacco Use: Former Smoker Tobacco Type: Cigarettes Amount or Packs/day: 1 CIG/DAY How Many Years: 30 Alcohol Use: Yes Frequency: Daily Quant: 1 GLASS/DAY
== END | disposition home or self-care (01) ==
LOC: PAIN 07:04
PROVIDERS: ATTEND Anesthesiology Pain Medicine
DX: M54.16 Radiculopathy, lumbar region (principal); M43.16 Spondylolisthesis, lumbar region; M54.6 Pain in thoracic spine; I10 Essential (primary) hypertension; D64.9 Anemia, unspecified; Z98.890 Other specified postprocedural states; Z87.891 Personal history of nicotine dependence; Z79.899 Other long term (current) drug therapy

== ENCOUNTER → 2020-08-03 | Outpatient (CLI) | payer OTHER | LOC: MRI 10:59 | PROVIDERS: ATTEND Anesthesiology Pain Medicine | DX: M54.14 Radiculopathy, thoracic region (principal); R07.9 Chest pain, unspecified ==

== ENCOUNTER → 2020-09-16 | Outpatient (CLI) | payer OTHER ==
[~2020-09-16] VITALS: Ht 170.2 cm; Wt 68.9 kg
[2020-09-16 08:21] VITALS: BP 156/77
--- NOTE | 2020-09-16 08:33 | NUR ---
Pain Clinic Assessment: 1. History of Osteoarthritis: DDD BACK History of Rheumatoid Arthritis: Not Applicable 2. Height: 5 ft. 7 in. 170.2 cm. Weight: 152.0 lb. oz. 68.947 kg. Patient's BMI: 23.8 3. Vital Signs: BP: 156/77 Pulse: 67 Resp: 16 Temp: 02 Sat: 98 ECG Mon: 4. Pain Intensity: 8 5. Fall Risk: Dizziness: N Needs help standing or walking: N Fallen in the last 3 months: N Fall risk comments: 6. Patient on Blood Thinner: None 7. History of Hypertension: Y 8. Opioid Therapy greater than 6 weeks: N Opiate Contract Signed: 9. Risk Assessment Tool Provided: 1-LOW RISK 10. Functional Assessment Tool: 11. Recreational Drug Use: Never Drug Type: Tobacco Use: Former Smoker Tobacco Type: Amount or Packs/day: How Many Years: Alcohol Use: Yes Frequency: Daily Quant: 1 WINE
== END ==
LOC: PAIN 06:38
PROVIDERS: ATTEND Anesthesiology Pain Medicine
DX: M43.16 Spondylolisthesis, lumbar region (principal); M54.16 Radiculopathy, lumbar region; G89.29 Other chronic pain